=== PATIENT | male | born 1995 | race Caucasian/White ===

== ENCOUNTER 2022-06-25 19:19 | Emergency (ER) | payer OTHER, SELFPAY ==
[2022-06-25 19:34] VITALS: BP 138/87; PULSE 53; RESP 16; TEMP 37.1; O2SAT 98
--- NOTE | 2022-06-25 19:34 | ED.SKABFB ---
HPI - Skin/Abscess/Foreign Bdy General Chief complaint: Skin/Abscess/Foreign Body Stated complaint: poison sandra Time Seen by Provider: 06/25/22 19:34 Source: patient and RN notes reviewed Mode of arrival: ambulatory Limitations: no limitations History of Present Illness HPI narrative: 27-year-old male presents to the [facility] with complaints of poison sandra, diagnosed a week ago, was started on triamcinolone ointment since then has developed very dry itchy patchy areas to bilateral arms. Left antecubital is very dry, red, warm to touch MD complaint: rash Related Data Allergies Allergy/AdvReac Type Severity Reaction Status Date / Time calamine Allergy Hives Verified 06/25/22 19:42 Review of Systems Review of Systems: All systems reviewed & are unremarkable except as noted in HPI and below Constitutional: Constitutional: Reports no additional constitutional complaints, Denies chills, Denies fever(s), Denies headache(s) and Denies weakness Eyes: Eyes: Reports no additional eye complaints and Denies change in vision ENT: Reports system reviewed and no additional complaints, except as documented, Denies dysphagia, Denies dizziness, Denies headache(s), Denies nasal congestion and Denies sore throat Cardiovascular: Cardiovascular: Reports no additional cardiovascular complaints, Denies chest pain, Denies syncope and Denies dyspnea Respiratory: Respiratory: Reports no additional respiratory complaints, Denies chest congestion, Denies cough, Denies dyspnea and Denies wheezing Gastrointestinal: Gastrointestinal: Denies dysphagia Musculoskeletal: Musculoskeletal: Reports no additional musculoskeletal complaints and Denies numbness Integumentary/Breasts: Skin/Breast: Reports as per HPI, Reports erythema (Left antecubital) and Reports rash Neurologic: Reports system reviewed and no additional complaints, except as documented, Denies dizziness, Denies syncope, Denies headache(s), Denies focal weakness, Denies numbness and Denies weakness Psychiatric: Psychiatric: Reports no additional psychiatric complaints Allergic/Immunologic: Allergic/Immunologic: Reports no additional allergic/immunologic complaints and Denies wheezing PMFSH Past Medical History Medical History (Updated 06/25/22 @ 20:28 by Catie Long APRN) Patient denies medical problems Surgical History Surgical History (Updated 06/25/22 @ 20:26 by Catie Long APRN) No pertinent past surgical history Social History Social History (Updated 06/25/22 @ 20:26 by Catie Long APRN) Gender identity (if verbalized by the patient): Male Comments At the time of my signature, I reviewed and agree with the nursing past medical, surgical, social, and family history. There is no relevant family history pertinent to the patient complaint. Exam Const: General: healthy appearing, no acute distress and alert Nutritional Appearance: well nourished Orientation/consciousness: patient oriented x3 Limitations: no limitations HENMT: Head: normal to inspection Ears: external ears normal Eyes: Pupils: Equal, round and reactive pupils present Neck: Neck: normal visual inspection, no lymphadenopathy and no meningeal signs Chest: Chest palpation & inspection: normal inspection of the chest Resp: Effort & Inspection: normal respiratory effort Auscultation: clear to auscultation bilaterally Cardio: Rate: regular rate Rhythm: regular rhythm Skin: General skin exam: normal color Rashes: rashes noted Other: Dry red rash, bilateral arms. Red, warm left antecubital measuring 6 x 3 cm. Neuro: General: patient oriented x3, moves all extremities, no meningeal signs and no focal motor deficits Cranial nerves: Yes Equal, round and reactive pupils present Speech: normal speech Gait exam (Neuro): Normal gait present Extrem: General: normal to inspection Psych: Appearance: grossly normal and well kempt Mental Status: mental status grossly normal Affect: normal affect
== END 2022-06-25 19:54 | disposition home or self-care (01) ==
PROVIDERS: Emergency Provider Nurse Practitioner
DX: L03.114 Cellulitis of left upper limb (principal); L25.9 Unspecified contact dermatitis, unspecified cause
CPT/HCPCS: 99213; G0463

== ENCOUNTER 2022-07-16 18:23 | Emergency (ER) | payer OTHER, SELFPAY ==
--- NOTE | 2022-07-16 18:35 | ED.SKABFB ---
HPI - Skin/Abscess/Foreign Bdy General Chief complaint: Skin/Abscess/Foreign Body Stated complaint: poison sandra Time Seen by Provider: 07/16/22 18:45 Source: patient and RN notes reviewed Mode of arrival: ambulatory Limitations: no limitations History of Present Illness HPI narrative: 27-year-old male presents with concern for rash on his hands. He reports he was treated for poison sandra at the beginning of the month, he took 5 days of prednisone in addition to an antibiotic, reports he likely had a secondary skin infection related to the poison sandra. Reports the rash seemed to return when his medications were finished. He reports he has had a rash on his hands for 1 week he also has a rash on his neck. He is not sure of any new exposure, reports his dogs could be exposing him to poison sandra. He reports the rash is itchy, reports Benadryl helps. He denies any pain, drainage. Reports he used an IV dry wash. Denies swollen lips, swollen tongue, trouble breathing. MD complaint: rash Related Data Allergies Allergy/AdvReac Type Severity Reaction Status Date / Time calamine Allergy Hives Verified 07/16/22 18:35 Review of Systems Review of Systems: CONSTITUTIONAL: Denies malaise, chills, sweats, or fever. EYES: Denies redness, or discharge. ENT: Denies rhinorrhea, congestion, swollen lips, swollen tongue CARDIOVASCULAR: Denies chest pain, palpitations, or edema. RESPIRATORY: Denies cough or dyspnea. GASTROINTESTINAL: Denies abdominal pain, nausea, vomiting SKIN: Reports itchy rash on his hands, neck MUSCULOSKELETAL: Denies joint pain or myalgia. NEUROLOGIC: Denies headache. All systems reviewed & are unremarkable except as noted in HPI and below PMFSH Past Medical History Medical History (Updated 07/16/22 @ 18:51 by Catie Navarro NP) Patient denies medical problems Surgical History Surgical History (Updated 06/25/22 @ 20:26 by Catie Long APRN) No pertinent past surgical history Social History Social History (Updated 06/25/22 @ 20:26 by Catie Long APRN) Gender identity (if verbalized by the patient): Male Comments At time of signature, agree with nursing past medical, surgical, social and family history. There is no relevant family history pertinent to the presenting complaint Exam Narrative: GENERAL: Well-appearing, well-nourished, and in no acute distress. HEAD: Normocephalic, atraumatic. EYES: PERRLA, conjunctivae clear, and EOMI. ENT: Mucous membranes moist. Oropharynx without edema, erythema or lesions. NECK: Supple. No lymphadenopathy CHEST: Clear to auscultation. No respiratory distress. HEART: Regular rate and rhythm. SKIN: Warm, dry. Papular rash with some scabs and crusting noted to bilateral hands, neck NEURO: Alert and oriented x3. PSYCH: Normal mood and affect Course Course Emergency Course: Patient is aware of diagnosis, understands and agrees to treatment plan. Anticipatory guidance given. Patient agrees to follow-up as directed and is aware of reasons to seek care at the emergency department. Portions of this record may have been created with voice recognition software Level of Care: Express Care Visit Vital Signs Vital signs: Reviewed. MDM - Skin/Abscess/Foreign Bdy MDM Narrative Medical decision making narrative: Does not appear at this time to be erythema multiforme, bullous, SJS, TEN; no evidence at this time to suggest RMSF, endocarditis or Lyme disease; patient looks well, nontoxic and is tolerating oral intake; no neurologic signs or symptoms; no headache, photophobia or neck pain; afebrile; appropriate for initial outpatient treatment; discussed the importance of follow-up, patient agrees; question, viral exanthema, contact dermatitis, allergic dermatitis, eczema, urticaria, scabies. No soft palate or uvula edema, no tongue, lip edema or other mucosal involvement, no respiratory compromise, no stridor, no wheezing, no wheezing, no history of syncope, no hypotension, no n
[2022-07-16 18:38] VITALS: BP 135/78; PULSE 66; RESP 16; TEMP 36.6; O2SAT 100
--- NOTE | 2022-07-16 18:54 | ED.SKABFB ---
HPI - Skin/Abscess/Foreign Bdy General Chief complaint: Skin/Abscess/Foreign Body Stated complaint: poison sandra Time Seen by Provider: 07/16/22 18:45 Source: patient and RN notes reviewed Mode of arrival: ambulatory Limitations: no limitations History of Present Illness MD complaint: rash Related Data Allergies Allergy/AdvReac Type Severity Reaction Status Date / Time calamine Allergy Hives Verified 07/16/22 18:35 Review of Systems Review of Systems: CONSTITUTIONAL: Denies malaise, chills, sweats, or fever. EYES: Denies redness, or discharge. ENT: Denies rhinorrhea, congestion, swollen lips, swollen tongue CARDIOVASCULAR: Denies chest pain, palpitations, or edema. RESPIRATORY: Denies cough or dyspnea. GASTROINTESTINAL: Denies abdominal pain, nausea, vomiting SKIN: Reports rash MUSCULOSKELETAL: Denies joint pain or myalgia. NEUROLOGIC: Denies headache. All systems reviewed & are unremarkable except as noted in HPI and below PMFSH Past Medical History Medical History (Updated 07/16/22 @ 18:51 by Catie Navarro NP) Patient denies medical problems Surgical History Surgical History (Updated 06/25/22 @ 20:26 by Catie Long APRN) No pertinent past surgical history Social History Social History (Updated 06/25/22 @ 20:26 by Catie Long APRN) Gender identity (if verbalized by the patient): Male Comments At time of signature, agree with nursing past medical, surgical, social and family history. There is no relevant family history pertinent to the presenting complaint Exam Narrative: GENERAL: Well-appearing, well-nourished, and in no acute distress. HEAD: Normocephalic, atraumatic. EYES: PERRLA, conjunctivae clear, and EOMI. ENT: Mucous membranes moist. Oropharynx without edema, erythema or lesions. NECK: Supple. No lymphadenopathy CHEST: Clear to auscultation. No respiratory distress. HEART: Regular rate and rhythm. SKIN: Warm, dry. Patches of erythema and edema NEURO: Alert and oriented x3. PSYCH: Normal mood and affect Course Course Emergency Course: Patient is aware of diagnosis, understands and agrees to treatment plan. Anticipatory guidance given. Patient agrees to follow-up as directed and is aware of reasons to seek care at the emergency department. Portions of this record may have been created with voice recognition software Level of Care: Express Care Visit Vital Signs Vital signs: Vital Signs Temperature 97.9 F 07/16/22 18:38 Pulse Rate 66 07/16/22 18:38 Respiratory Rate 16 07/16/22 18:38 Blood Pressure 135/78 07/16/22 18:38 Pulse Oximetry 100 07/16/22 18:38 Temperature 97.9 F 07/16/22 18:38 Pulse Rate 66 07/16/22 18:38 Respiratory Rate 16 07/16/22 18:38 Blood Pressure 135/78 07/16/22 18:38 Pulse Oximetry 100 07/16/22 18:38 Reviewed. MDM - Skin/Abscess/Foreign Bdy MDM Narrative Medical decision making narrative: Does not appear at this time to be erythema multiforme, bullous, SJS, TEN; no evidence at this time to suggest RMSF, endocarditis or Lyme disease; patient looks well, nontoxic and is tolerating oral intake; no neurologic signs or symptoms; no headache, photophobia or neck pain; afebrile; appropriate for initial outpatient treatment; discussed the importance of follow-up, patient agrees; question, viral exanthema, contact dermatitis, allergic dermatitis, eczema, urticaria, [ xx ]. No soft palate or uvula edema, no tongue, lip edema or other mucosal involvement, no respiratory compromise, no stridor, no wheezing, no wheezing, no history of syncope, no hypotension, no nausea, vomiting, or diarrhea. Instructed patient to go to nearest ER immediately for any worsening symptoms including but not limited to: fever, spreading rash, pain, sore throat, headache, dizziness, chest pain, trouble breathing, or any symptoms concerning to the patient. Critical Care Time Critical Care Time Critical Care Time: No Discharge Plan Discharge Clini
== END 2022-07-16 18:54 | disposition home or self-care (01) ==
PROVIDERS: Emergency Provider Nurse Practitioner
DX: L23.7 Allergic contact dermatitis due to plants, except food (principal)
CPT/HCPCS: 99213; G0463

== ENCOUNTER 2022-09-30 20:20 | Emergency (ER) | payer OTHER, SELFPAY ==
--- NOTE | ~2022-09-30 | XR_ITS ---
EXAMINATION: XR finger 3rd LT min 2V INDICATION: Postreduction TECHNIQUE: Three views of the left third finger are obtained. COMPARISON: 2037 hours FINDINGS: There is been interval reduction of the previously described dorsal and medial dislocation of the third middle phalanx with respect to the proximal phalanx. There are mild dorsal subluxation o f the middle phalanx with respect to the proximal phalanx. Subtle osseous irregularity is noted along the palmar aspect of the base of the third middle phalanx. IMPRESSION: 1. Reduced dislocation of the third proximal interphalangeal joint with slight dorsal subluxation of the middle phalanx with respect to the proximal phalanx and osseous irregularity at the palmar base o f the terminal phalanx, suggestive of tendinous and avulsion injury. Reviewed, dictated and finalized at location B. ATION / CHEMISTRY TECHNICIAN IMPRESSION: 1. Reduced dislocation of the third proximal interphalangeal joint with slight dorsal subluxation of the middle phalanx with respect to the proximal phalanx a nd osseous irregularity at the palmar base of the terminal phalanx, suggestive of tendinous and avulsion injury.
--- NOTE | ~2022-09-30 | XR_ITS ---
EXAM: XR finger 3rd LT min 2V DATE: 09/30/2022 20:41 HISTORY: FALLING INJURY TO LEFT 3RD DIGIT . COMPARISON: None available. FINDINGS: Normal mineralization. Medial and posterior dislocation of the third PIP joint, with fores hortening of the third digit and medial angulation of the middle and distal phalanges. No fracture. N o lytic or blastic lesion. Joint spaces are maintained. No erosion or periosteal change. Soft tissues within normal limits. IMPRESSION: Medial and posterior dislocation of the left third PIP joint. Reviewed, dictated and finalized at location K. SSMENT SPECIALIST
[2022-09-30 20:29] VITALS: BP 100/57; PULSE 109; RESP 18; TEMP 36.4; O2SAT 100
[2022-09-30] MEDS: LIDOCAINE HCL 1% PF 30 ML VIAL (23:06)
--- NOTE | 2022-09-30 23:14 | ED.UPPEXIN ---
HPI - Extremity Injury (Upper) General Chief Complaint: Extremity Injury, Upper <Roselyn Fenton PA-C - Last Filed: 09/30/22 23:38> Stated Complaint: left middle finger injury <BONITA Grijalva Last Filed: 09/30/22 23:38> Time Seen by Provider: 09/30/22 22:37 <BONITA Grijalva Last Filed: 09/30/22 23:38> Source: patient <BONITA Grijalva Last Filed: 09/30/22 23:38> Mode of arrival: ambulatory <BONITA Grijalva Last Filed: 09/30/22 23:38> Limitations: no limitations <BONITA Grijalva Last Filed: 09/30/22 23:38> History of Present Illness HPI narrative: This is a 27-year-old male that presents to the emergency department for left third finger injury sustained just prior to arrival. Reports he was playing soccer and got tangled with another player. He fell and tried to catch himself with his left hand. Reports pain with obvious deformity to the left third finger. Reports decreased range of motion. Denies numbness. <BONITA Grijalva Last Filed: 09/30/22 23:38> Related Data Allergies/Adverse Reactions: Allergies Allergy/AdvReac Type Severity Reaction Status Date / Time calamine Allergy Hives Verified 09/30/22 22:55 <BONIAT Grijalva Last Filed: 09/30/22 23:38> Review of Systems Review of Systems: CONSTITUTIONAL: Denies fever EYES: Denies visual changes CARDIOVASCULAR: Reports edema. RESPIRATORY: Denies cough GASTROINTESTINAL: Denies vomiting GENITOURINARY: Denies dysuria or hematuria. SKIN: Denies rash MUSCULOSKELETAL: Reports joint pain, and myalgia. NEUROLOGIC: Denies numbness PSYCHIATRIC: Denies anxiety <BONITA Grijalva Last Filed: 09/30/22 23:38> All systems reviewed & are unremarkable except as noted in HPI and below <BONITA Grijalva Last Filed: 09/30/22 23:38> [facility] Past Medical History Medical History: Medical History (Updated 09/30/22 @ 23:37 by Roselyn Fenton PA-C) Patient denies medical problems <Roselyn Fenton PA-C - Last Filed: 09/30/22 23:38> Surgical History Surgical History: Surgical History (Updated 06/25/22 @ 20:26 by Catie Long APRN) No pertinent past surgical history <Roselyn Fenton PA-C - Last Filed: 09/30/22 23:38> Social History Social History: Social History (Updated 09/30/22 @ 23:25 by Roselyn Fenton PA-C) Substance use: never Gender identity (if verbalized by the patient): Male <Roselyn Fenton PA-C - Last Filed: 09/30/22 23:38> Exam Narrative: GENERAL: Well-appearing, well-nourished, and in no acute distress. HEAD: Normocephalic, atraumatic. EYES: EOMI. CHEST: No respiratory distress. HEART: Regular rate EXTREMITIES: Left third finger PIP joint with obvious deformity. Normal radial pulse. Normal capillary refill SKIN: Warm, dry, no rash. NEURO: No focal deficits. Alert and oriented x3. PSYCH: Normal mood and affect <Roselyn Fenton PA-C - Last Filed: 09/30/22 23:38> Course FORMS BUILDER/PA Physician Supervision For this encounter, I have reviewed the mid-level provider documentation, treatment plan and medical decision making. I have had [id number] time with the patient. Physical exam revealed a nondisplaced deformed finger. X-ray confirmed dislocation per digital block was Reduced and placed in a splint. Pitts components of the procedures were under my supervision. Patient will be discharged. <Phani Holcomb MD - Last Filed: 10/01/22 04:33> Vital Signs Vital signs: Vital Signs Temperature 97.6 F 09/30/22 20:29 Pulse Rate 109 H 09/30/22 20:29 Respiratory Rate 18 09/30/22 20:29 Blood Pressure 100/57 L 09/30/22 20:29 Pulse Oximetry 100 09/30/22 20:29 Temperature 97.6 F 09/30/22 20:29 Pulse Rate 109 H 09/30/22 20:29 Respiratory Rate 18 09/30/22 20:29 Blood Pressure 100/57 L 09/30/22 20:29 Pulse Oximetry 98 10/01/22 00:11 <Roselyn Fenton PA-C - Last Filed: 09/30
[2022-10-01 00:11] VITALS: O2SAT 98
== END 2022-10-01 00:15 | disposition home or self-care (01) ==
LOC: ANHED 23:40
PROVIDERS: Emergency Provider Emergency Medicine
DX: S63.283A Dislocation of proximal interphalangeal joint of left middle finger, initial encounter (principal); W03.XXXA Other fall on same level due to collision with another person, initial encounter; Y93.66 Activity, soccer
CPT/HCPCS: 26770; 73140; 99285

== ENCOUNTER 2022-11-21 12:30 | Outpatient (RCR) | payer OTHER, SELFPAY ==
--- NOTE | 2022-10-24 09:00 | OTOPEVAL1 ---
Assessment and note entered by VIJI Frank/Messi Evaluation Information Assessment Status Evaluation Diagnosis L middle finger PIP joint dislocation Subjective Information Patient presents to Outpatient OT following a complete dorsal/ulnar dislocation of the L middle finger at the PIP joint on 09/30/2022, 3 weeks post reduction. Patient has a dorsal blocking splint over the PIP joint, Dr. Martínez instructed patient to slowly bend splint with attempts to gain more flexion in finger. Patient reports difficulty using L hand due to not being able to bend middle finger. Reported Pain Level Pain Score 0: Self Report Assessment OT Clinical Summary James is a 27 year old male who presents to Outpatient OT following a complete dorsal/ulnar dislocation of the L middle finger at the PIP joint on 09/30/2022, 3 weeks post reduction. Patient demonstrated limited L digit 3 PIP/DIP joint active ROM. Patient would benefit from skilled OT for HEP instruction, UE exercise, manual therapy, use of modalities, and use of splinting in order to optimize functional use of L UE. Plan of Care Interventions Therapeutic Exercise,Manual Therapy,Therapeutic Activities,Hot Pack/Cold Pack,Check Out for Orthotic/Pr,Paraffin OT Services Indicated Yes These treatments will address the objective and functional deficits as defined above. The patient will be advanced safely and appropriately in order for the patient to progress towards his/her prior level of function. Additional exercises will be introduced and as well as a comprehensive home exercise program upon discharge, if needed, ?to ensure carryover of functional gains achieved in the clinic. This treatment plan has been reviewed and agreement upon by the patient.
--- NOTE | 2022-11-21 13:01 | OTOPDC ---
Assessment and note entered by VIJI Frank/Messi Evaluation Information Assessment Status Discharge Diagnosis L middle finger PIP joint dislocation Subjective Information Patient presents to Outpatient OT following a complete dorsal/ulnar dislocation of the L middle finger at the PIP joint on 09/30/2022, 7 weeks post reduction. Patient reports is using L hand as normal and is pleased with the increasing strength and ROM of L middle finger. Reported Pain Level Pain Score 0: Self Report Assessment OT Clinical Summary James is a 27 year old male who presents to Outpatient OT following a complete dorsal/ulnar dislocation of the L middle finger at the PIP joint on 09/30/2022, 7 weeks post reduction. Patient demonstrated good progress with active and passive ROM of digit 3 PIP/DIP flexion. Patient is pleased with increasing strength and ROM of L digit 3. Patient is to be discharged today from skilled OT with independence with HEP and all goals met. Plan of Care OT Services Indicated No
== END 2022-11-21 14:30 | disposition home or self-care (01) ==
LOC: ANHGOSHOT 12:30
PROVIDERS: Visit Provider Plastic Surgery
DX: S63.27 Dislocation of unspecified interphalangeal joint of finger (principal); M25.642 Stiffness of left hand, not elsewhere classified
CPT/HCPCS: 97018; 97035; 97110; 97140; 97165

== ENCOUNTER 2024-06-07 11:56 | Emergency (ER) | payer BC, SELFPAY ==
[2024-06-07 12:05] VITALS: BP 126/75; PULSE 72; RESP 16; TEMP 36.5; O2SAT 100
--- NOTE | 2024-06-07 12:05 | ED.SKABFB ---
HPI - Skin/Abscess/Foreign Bdy General Chief complaint: Skin/Abscess/Foreign Body Stated complaint: RASH Time Seen by Provider: 06/07/24 12:05 Source: patient, RN notes reviewed and old records reviewed Mode of arrival: ambulatory Limitations: no limitations History of Present Illness HPI narrative: patient presents with complaint of rash after being out on a float trip. Patient reports that he frequently gets poison migdalia. Reports that symptoms have been present for 1 day. Worst on the left arm and abdomen. He reports itching. Denies all other complaints at this time. Related Data Allergies Allergy/AdvReac Type Severity Reaction Status Date / Time calamine Allergy Hives Verified 06/07/24 12:10 Review of Systems Review of Systems: All systems reviewed & are unremarkable except as noted in HPI and below Constitutional: Constitutional: Reports no additional constitutional complaints ENT: Reports system reviewed and no additional complaints, except as documented Cardiovascular: Cardiovascular: Reports no additional cardiovascular complaints Respiratory: Respiratory: Reports no additional respiratory complaints Gastrointestinal: Gastrointestinal: Reports no additional gastrointestinal complaints Integumentary/Breasts: Skin/Breast: Reports rash Comments: Arms and abdomen Allergic/Immunologic: Allergic/Immunologic: Reports as per HPI [facility] Past Medical History Medical History Patient denies medical problems Surgical History Surgical History No pertinent past surgical history Social History Social History Substance use: never Gender identity (if verbalized by the patient): Male Comments At the time of my signature, I reviewed and agree with the nursing past medical, surgical, social, and family history. There is no relevant family history pertinent to the patient complaint. Exam Const: General: cooperative, no acute distress, alert and awake Orientation/consciousness: oriented to person, oriented to place and oriented to time HENMT: Head: normal to inspection Resp: Effort & Inspection: normal respiratory effort and able to speak in complete sentences Auscultation: clear to auscultation bilaterally, no crackles, no rales, no rhonchi and no wheezes Cardio: Palpation: normal PMI Rate: regular rate Rhythm: regular rhythm Heart sounds: S1 normal heart sound present and S2 normal heart sound present Skin: Rashes: rashes noted ( rash c/w contact dermatitis present on trunk and bilateral arm, extensive) Neuro: General: oriented to person, oriented to place and oriented to time Cranial nerves: Yes CN's II-XII intact bilaterally Psych: Appearance: grossly normal Thought process: Normal thought process present Insight: Good insight present (Psych) Judgement: Good judgement present (Psych) Course Course Level of Care: Express Care Visit Vital Signs Vital signs: Reviewed MDM - Skin/Abscess/Foreign Bdy MDM Narrative Medical decision making narrative: patient with extensive rash consistent with contact dermatitis due to poison migdalia on arms and abdomen. Symptoms present since yesterday, spreading rapidly. Fifteen day steroid taper. Emergency department for new or worsening symptoms. Follow with primary care provider in 1-2 weeks Discharge Plan Discharge Clinical Impression: Allergic contact dermatitis due to plant Patient Disposition: Home, Self-Care Condition: Stable Instructions: Poison Migdalia (ED) Additional Instructions: emergency department for new or worsening symptoms. Follow up with primary care provider in 1-2 weeks. Take all medications as prescribed. Patient Language: Vincentian Prescriptions: New prednisone 10 mg tablet See Rx Instructions .ROUTE .COMPLEX 15 Days Qty: 45 0RF Taper: Pr
== END 2024-06-07 12:18 | disposition home or self-care (01) ==
PROVIDERS: Emergency Provider Nurse Practitioner Family
DX: L23.7 Allergic contact dermatitis due to plants, except food (principal)
CPT/HCPCS: 99213; G0463

== ENCOUNTER 2025-03-21 17:20 | Emergency (ER) | payer BC, SELFPAY ==
[2025-03-21 17:25] VITALS: BP 145/80; PULSE 60; RESP 16; TEMP 35.9; O2SAT 100
--- NOTE | 2025-03-21 17:53 | ED.SKABFB ---
HPI - Skin/Abscess/Foreign Bdy General Chief complaint: Skin/Abscess/Foreign Body Stated complaint: Tick Bite Time Seen by Provider: 03/21/25 17:53 Source: patient Mode of arrival: ambulatory Limitations: no limitations History of Present Illness HPI narrative: Patient presents to urgent care for complaints of a tick bite to his right upper thigh. He pulled the tick off of him yesterday. Denies any bulls eyes streaking, pain, or fever. Related Data Allergies Allergy/AdvReac Type Severity Reaction Status Date / Time calamine Allergy Hives Verified 03/21/25 17:49 Review of Systems Review of Systems: CONSTITUTIONAL: Denies body aches, fever, chills, or sweats. EYES: Denies visual changes, redness, or discharge. ENT: Denies rhinorrhea, congestion CARDIOVASCULAR: Denies chest pain, palpitations, or edema. RESPIRATORY: Denies cough or dyspnea. GASTROINTESTINAL: Denies abdominal pain, nausea, vomiting, or diarrhea. SKIN: ?Reports tick bite to Right upper thigh. MUSCULOSKELETAL: Denies back pain, joint pain, or myalgia. NEUROLOGIC: Denies headache, numbness, tingling, or weakness. All systems reviewed & are unremarkable except as noted in HPI and below PMFSH Past Medical History Medical History Patient denies medical problems Surgical History Surgical History No pertinent past surgical history Social History Social History Substance use: never Gender identity (if verbalized by the patient): Male Comments At time of signature, I have reviewed and agree with nursing past medical, surgical, social and family history unless otherwise noted. Please see nursing chart for further information. There is no relevant family history pertinent to the presenting complaint. Exam Narrative: GENERAL: Well-appearing HEAD: Normocephalic, atraumatic. EYES: ?conjunctivae clear, and EOMI. ENT: Mucous membranes moist. Oropharynx without edema, erythema or lesions. NECK: Supple. No lymphadenopathy CHEST: Clear to auscultation. HEART: Regular rate and rhythm. SKIN: Warm, dry. 4 cm x 4cm bite noted to right upper thigh. No bulls eye streaking, edema, or fever. NEURO: ?Alert and oriented x3.? Course Course Level of Care: Express Care Visit Vital Signs Vital signs: Vital Signs Temperature 96.6 F L 03/21/25 17:25 Pulse Rate 60 03/21/25 17:25 Respiratory Rate 16 03/21/25 17:25 Blood Pressure 145/80 H 03/21/25 17:25 Pulse Oximetry 100 03/21/25 17:25 Temperature 96.6 F L 03/21/25 17:25 Pulse Rate 60 03/21/25 17:25 Respiratory Rate 16 03/21/25 17:25 Blood Pressure 145/80 H 03/21/25 17:25 Pulse Oximetry 100 03/21/25 17:25 Reviewed MDM - Skin/Abscess/Foreign Bdy MDM Narrative Medical decision making narrative: Discussed physical exam findings. Prophylaxis tx with doxycycline. Advised supportive measures and signs/symptoms to go to the ER. Discussed that symptoms may show up for 30 days. Pt is appropriate for outpatient treatment and follow up. Differential Diagnosis Differential diagnosis: Likely cellulitis, contact dermatitis and other (tick bite) Critical Care Time Critical Care Time Critical Care Time: No Discharge Plan Discharge Clinical Impression: Tick bite Patient Disposition: Home Condition: Stable Instructions: Antibiotic Form, Tick Bite (ED) Additional Instructions: Take medication as prescribed. Watch for symptoms for the next 30 days. Keep the area clean and dry - cleanse with warm water and mild soap and allow to fully dry. Keep it open to air (no bandages) Watch for worsening symptoms including pain, redness, swelling, streaking, pus/drainage, fever, or a bulls eye pattern. Go to the ER with any of these symptoms or concerns. Follow up with primary care provider in 1 week as needed. Patient Language: Ecu[place] Prescriptions: New doxycycline hyclate 100 mg capsule 200 mg PO ONCE Qty: 1 0RF Follow-up/Referrals: PHYSICIAN,UPHOLSTERY TECHNICIAN [Primary Care Provider] - Time of Disposition: 17:58
== END 2025-03-21 18:04 | disposition home or self-care (01) ==
DX: S70.361A Insect bite (nonvenomous), right thigh, initial encounter (principal); W57.XXXA Bitten or stung by nonvenomous insect and other nonvenomous arthropods, initial encounter
CPT/HCPCS: 99213; G0463